=== PATIENT | male | born 1995 | race Caucasian/White ===

== ENCOUNTER 2019-12-11 13:01 | Emergency (ER) | payer SELFPAY ==
[~2019-12-11] VITALS: Ht 177.8 cm; Wt 82.0 kg
[2019-12-11] MEDS ORDERED: LIDOCAINE HCL/PF 1% 10 MG/ML 5ML VIAL IJ ONE (15:45)
[2019-12-11] MEDS ORDERED: TETANUS, DIPHTHERIA, PERTUSSIS VAC/PF 0.5ML (>7YR OLD) IM ONE (15:45)
[2019-12-11] MEDS ORDERED: BACITRACIN ZINC OINT UDPKT TOP ONE (15:45)
[2019-12-11 16:49] VITALS: BP 127/82
== END 2019-12-11 16:50 | disposition home or self-care (01) ==
LOC: ER 13:01
DX: S61.511A Laceration without foreign body of right wrist, initial encounter (principal); W18.30XA Fall on same level, unspecified, initial encounter; Y93.89 Activity, other specified; Y92.89 Other specified places as the place of occurrence of the external cause; Y99.8 Other external cause status
CPT/HCPCS: 12002; 90471; 90715; 99283; J3490

== ENCOUNTER 2019-12-13 08:45 | Emergency (ER) | payer SELFPAY ==
[~2019-12-13] VITALS: Ht 177.8 cm; Wt 81.0 kg
[2019-12-13 08:57] VITALS: BP 127/78
== END 2019-12-13 09:35 | disposition home or self-care (01) ==
LOC: ER 08:45
DX: Z48.00 Encounter for change or removal of nonsurgical wound dressing (principal)
CPT/HCPCS: 99281

== ENCOUNTER 2019-12-21 07:33 | Emergency (ER) | payer SELFPAY ==
[~2019-12-21] VITALS: Ht 177.8 cm; Wt 80.0 kg
[2019-12-21 08:35] VITALS: BP 114/72
== END 2019-12-21 08:36 | disposition home or self-care (01) ==
LOC: ER 07:33
DX: S61.511D Laceration without foreign body of right wrist, subsequent encounter (principal); X58.XXXD Exposure to other specified factors, subsequent encounter
CPT/HCPCS: 99283